=== PATIENT | male | born 1985 | race Asian ===

== ENCOUNTER 2022-08-10 18:37 | Emergency (ER) | payer SELFPAY ==
[~2022-08-10] VITALS: Ht 167.6 cm; Wt 136.1 kg
[2022-08-10 19:17] VITALS: BP_SYST 125
--- NOTE | 2022-08-10 19:26 | NUR ---
Patient wheeled to bed 3 for evaluation and treatment
--- NOTE | 2022-08-10 19:27 | NUR ---
PT from home with c/o dizziness for the past couple of week that worsened today around 1200. Pt reports blurred vision and nausea. Denies LOC or KO, and vomiting. Hx of HTN and cancer 15 years ago.
--- NOTE | 2022-08-10 19:29 | NUR ---
Patient to ER bed 03 to gown for evaluation. Side rails up. Report given to Emily HDALIWAL.
--- NOTE | 2022-08-10 19:39 | NUR ---
PRESENTS FROM HOME C/O DIZZINESS X 1 DAY. DESCRIBES FEELING LIKE THE ROOM IS SPINNING. DENIES HEADACHE. REPORTS HX OF TINNITUS D/T HAVING HX OF LEUKEMIA. REPORTS BEING IN REMISSION FOR 15 YEARS. DENIES CHEST PAIN AND DYSPNEA. ALSO DENIES N/V. PLACED ON FORM TAMPER. SHOWING NSR. BED IN LOW POSITION, WHEELS LOCKED AND SR UP X 1. AWAITING MD ORDERS. WILL CONTINUE TO MONITOR.
[2022-08-10] MEDS ORDERED: MECLIZINE HCL 25 MG TABLET (ANITVERT) PO ONE (20:15)
[2022-08-10 21:01] LABS: BASOPHILS # (AUTO) 0.1 K/uL (0.0-0.2); BASOPHILS % (AUTO) 0.7 % (0.0-2.0); EOSINOPHILS # (AUTO) 0.1 K/uL (0.0-0.4); EOSINOPHILS % (AUTO) 0.5 % (0.0-4.0); HEMATOCRIT 44.6 % (36-54); LYMPHOCYTES # (AUTO) 3.4 K/uL (1.0-5.5); LYMPHOCYTES % (AUTO) 26.4 % (20.5-51.5); MEAN CORPUSCULAR VOLUME 97 fL (79.0-98.0); MONOCYTES # (AUTO) 0.6 K/uL (0.0-1.0); NEUTROPHILS # (AUTO) 8.7 K/uL (1.8-7.7); NEUTROPHILS % (AUTO) 67.4 % (40.0-70.0); PLATELET COUNT (AUTO) 195 K/uL (130-430); RED BLOOD CELL COUNT(AUTO) 4.59 MIL/uL (4.2-6.2); RED CELL DISTRIBUTION WIDTH 13.2 % (9.0-15.0)
[2022-08-10 21:05] LABS: INR 0.9 (0.80-1.20); PROTHROMBIN TIME 9.8 SECS (9.5-12.5)
[2022-08-10 21:06] LABS: CALCIUM 8.8 mg/dL (8.4-11.0); CREATININE 1.39 mg/dL (0.55-1.30); POTASSIUM 4.4 mmol/L (3.5-5.1)
[2022-08-10 21:22] LABS: ALBUMIN 3.3 g/dL (3.4-4.8); TOTAL BILIRUBIN 0.6 mg/dL (0.0-1.0)
--- NOTE | 2022-08-10 22:29 | NUR ---
MD REQUESTING PATIENT TO AMBULATE TO ASSESS FOR DIZZINESS. PATIENT AMBULATORY TO AND FROM BATHROOM WITH A STEADY GAIT. NO ATAXIA NOTED. HE REPORTS THAT HE FELT BETTER THAN WHEN HE CAME IN NOT DIZZY. RETURNED BACK TO STRETCHER. SITTING ON SIDE OF STRETCHER AT THIS TIME. DENIES NEEDS/CONCERNS. MD AWARE.
[2022-08-10 22:31] VITALS: BP_SYST 116
[2022-08-10] MEDS ORDERED: MECL-160 PO (22:55)
--- NOTE | 2022-08-10 23:05 | NUR ---
Patient given written and verbal discharge instructions and verbalizes understanding. ER MD discussed with patient the results and treatment provided. Patient in stable condition. ID arm band removed. Rx of MECLIZIN given. Patient educated on pain management and to follow up with PMD. Pain Scale 0/10. Opportunity for questions provided and answered. Medication side effect fact sheet provided.
== END 2022-08-10 23:05 | disposition home or self-care (01) ==
LOC: SED 18:37
DX: H81.399 Other peripheral vertigo, unspecified ear (principal)
CPT/HCPCS: 99284; 70450; 80053; 85025; 85610; 85730; 36415; 76376; J8597